=== PATIENT | female | born 1980 | race Caucasian/White ===

== ENCOUNTER → 2018-06-05 12:16 | Outpatient (CLI) | payer OTHER, SELFPAY ==
[2018-06-05 12:02] VITALS: BMI 39.2
[2018-06-05 13:15] LABS: Absolute Lymphocyte Count 1.36 X10^3/ul (0.83-4.51); Absolute Neutrophil Count 4.6 X10^3/uL (2.0-7.7); Basophil# 0.01 X10^3/uL; Basophil% 0.2 % (0-1); Eosinophil# 0.18 X10^3/uL; Eosinophils% 2.8 % (0-5); Hematocrit 34.2 % (37-47); Hemoglobin 10.9 g/dl (12.0-15.0); Lymphocyte # 1.36 X10^3/ul (4.0); Lymphocyte % 21.1 % (19-41); Mean Corp Hgb Conc 31.9 g/gl (32-36); Mean Corpuscular Hgb 29.2 pg (27.0-32.0); Mean Corpuscular Volume 91.7 fL (81-99); Mean Platelet Vol. 9.8 fl (6.2-12.0); Monocyte# 0.27 X10^3/uL; Monocyte% 4.2 % (0-10); Neutrophil # 4.62 X10^3/uL (2.7-7.7); Neutrophil % 71.4 % (47-70); Platelet Count 253 K/mm3 (150-450); RBC Distribution Width CV 14.7 % (11.6-14.6); RBC Distribution Width SD 47.5 fl (35.1-43.9); Red Blood Count 3.73 M/mm3 (4.2-5.4); White Blood Count 6.5 K/mm3 (4.4-11.0)
[2018-06-05 13:17] LABS: POSITIVE COUNT NO; POSITIVE DIFFERENTIAL NO; POSITIVE MORPHOLOGY NO
[2018-06-05 13:45] LABS: Glucose Challenge Gest 1H 50g 157 mg/dL (70-140)
[2018-06-05 14:11] LABS: Rubella IgG > 500.0 IU/mL
== END ==
PROVIDERS: Family Provider Family Medicine; PCP Family Medicine; Referring Provider Obstetrics & Gynecology; Visit Provider Obstetrics & Gynecology
DX: O09.90 Supervision of high risk pregnancy, unspecified, unspecified trimester (principal); Z3A.00 Weeks of gestation of pregnancy not specified
CPT/HCPCS: 36415; 82950; 85025; 86762

== ENCOUNTER → 2018-06-19 07:02 | Outpatient (CLI) | payer OTHER, SELFPAY ==
[2018-06-05 12:02] VITALS: BMI 39.2
[2018-06-19 08:50] LABS: Glucose GTT-Gestation. Fasting 89 mg/dL (<105)
[2018-06-19 08:58] LABS: Glucose GTT-Gestational 1 Hr 216 mg/dL (<190)
[2018-06-19 11:13] LABS: Glucose GTT-Gestational 2 Hr 147 mg/dL (<165)
[2018-06-19 11:19] LABS: Glucose GTT-Gestational 3 Hr 91 L (<145)
== END ==
PROVIDERS: Family Provider Family Medicine; PCP Family Medicine; Referring Provider Nurse Practitioner Women's Health; Visit Provider Nurse Practitioner Women's Health
DX: O99.815 Abnormal glucose complicating the puerperium (principal)
CPT/HCPCS: 36415; 82951; 82952

== ENCOUNTER 2018-07-12 13:00 | Outpatient (CLI) | payer OTHER, SELFPAY ==
[2018-07-03 11:18] VITALS: BMI 39.2
[2018-07-12 13:14] VITALS: BMI 39.4
--- NOTE | 2018-07-13 19:39 | OB.TRI.PN_ITS ---
Progress Notes Date of Service: 07/12/18 Progress Note: NST secondary to gestational diabetes heart tones 140smoderate variability reactive no decelerations category I tracing [place]: no regular Assessment and plan gestational diabetes controlled with insulin recommend weekly testing and delivery at 39 weeks
== END 2018-07-12 14:30 | disposition home or self-care (01) ==
LOC: WPOUT 13:01 → WP 13:02
PROVIDERS: Family Provider Family Medicine; PCP Family Medicine; Referring Provider Obstetrics & Gynecology; Visit Provider Obstetrics & Gynecology
DX: O24.414 Gestational diabetes mellitus in pregnancy, insulin controlled (principal); Z3A.39 39 weeks gestation of pregnancy
CPT/HCPCS: 59025

== ENCOUNTER 2018-07-20 10:40 | Outpatient (CLI) | payer OTHER, SELFPAY ==
[2018-07-20 09:54] VITALS: BMI 39.4
[2018-07-20 11:35] VITALS: BMI 39.1
--- NOTE | 2018-07-21 08:17 | OB.TRI.NOTE ---
History of Present Illness Date of Service: 07/20/18 Was patient seen by the physician?: Yes Reason For Visit: NST Date of Service: 07/20/18 Final MAKENNA: 08/26/18 Final MAKENNA Source: US <20 weeks Gestational age: 34 Weeks and 6 Days History of Present Illness: Gestational diabetes for scheduled NST Allergies No Known Allergies Allergy (Verified 07/20/18 11:19) - Pertinent Past Medical History Surgical History: Past Surgical History (Last Reviewed 07/20/18 @ 09:53 by Radha Rahman) H/O dilation and curettage Hx laparoscopic cholecystectomy Physical Exam General: Alert, Oriented x3, Cooperative, No apparent distress Cardiovascular: Regular rate, Regular Rhythm Lungs: Clear to auscultation, Normal air movement Abdomen: Soft, Non Tender, Non-Distended, Gravid, Appropriate for Gestational Age Extremities:: No edema Neurological: Neuro grossly intact NST - FHR Rate Baby A Baseline: 140s Variability:: Moderate Accelerations:: 15 x 15 Decelerations:: None NST Reactive:: Yes, Appropriate for gestational age FHR Category:: Category I Uterine Activity:: none Impression/Plan Gestational diabetes at 34w6d ega for scheduled NST. NST reassuring. Good movement here and at home. F/U as scheduled.
== END 2018-07-20 12:08 | disposition home or self-care (01) ==
LOC: WPOUT 10:49 → OBT 10:50
PROVIDERS: Family Provider Family Medicine; PCP Family Medicine; Referring Provider Obstetrics & Gynecology; Visit Provider Obstetrics & Gynecology
DX: O24.419 Gestational diabetes mellitus in pregnancy, unspecified control (principal); Z3A.34 34 weeks gestation of pregnancy
CPT/HCPCS: 59025; 99218; G0378

== ENCOUNTER → 2018-08-03 17:53 | Outpatient (CLI) | payer OTHER, SELFPAY ==
[2018-08-03 10:29] VITALS: BMI 39.1
== END ==
PROVIDERS: Family Provider Family Medicine; PCP Family Medicine; Referring Provider Obstetrics & Gynecology; Visit Provider Obstetrics & Gynecology
DX: O09.90 Supervision of high risk pregnancy, unspecified, unspecified trimester (principal); Z3A.00 Weeks of gestation of pregnancy not specified
CPT/HCPCS: 87081

== ENCOUNTER 2018-08-13 05:30 | Inpatient (IN) | payer SELFPAY ==
[2018-06-19 10:29] VITALS: BMI 39.2
--- NOTE | 2018-08-10 07:58 | FALS_PTH ---
PATIENT: BERNARDA MCCOY LOC: [facility] U#:[id number] AGE/SX: 37/F ROOM: WP019 RE08/13/[address]: Dr. Sarai Jackson MD : 1980 BED: 1 DIS: 08/14/2018 SPEC #: [id number] RECD: 08/13/18 10:43 STATUS: TERESA REShirley #: [id number] KASHMIR: 08/10/18 07:[address]: Sarai Jackson DEPT: SURGICAL PATHOLOGY RECD BY: Nehemiah Mayo ENTERED: 08/14/18 08:28 SP TYPE: FALL TUBES OTHR DR: Hiral Menon PA-C Tissues: Fallopian tube Procedures: Surgery Specimen Level II HEADER OPERATION: Tubal ligation PRE-OP DIAGNOSIS: DVT, high risk TISSUE SUBMITTED: Fallopian tubes, suture in right MICROSCOPIC DIAGNOSIS Bilateral fallopian tubes: Right fallopian tube - segment of fallopian tube with complete lumen. Left fallopian tube - segment of fallopian tube with complete lumen and stromal decidual change. CE:nirav 08/15/18 MICROSCOPIC DESCRIPTION Slides are reviewed. GROSS DESCRIPTION Received is one container labeled with the patient's name and designated bilateral fallopian tubes. The specimen consists of two fallopian tubes with an average length of 4.5 cm and has an average diameter of 0.5 cm. Both fallopian tubes have normal fimbriated ends. No mass lesions are identified. [employer] sections are submitted in two cassettes as follows: 1 - right fallopian tube, 2 - left fallopian tube. / AM:nirav 08/14/18 TC:5 CPT: 33304 x2
[2018-08-13] VITALS (21 sets, daily range): BP systolic 114–139; BP diastolic 62–86; PULSE 66–85; RESP 15–18; TEMP 35.7–37; O2SAT 94–100; BMI 38.8
[2018-08-13] MEDS: Lactated Ringers 1,000 ML 999 ML IV (06:20)
[2018-08-13 06:51] LABS: Absolute Lymphocyte Count 1.55 X10^3/ul (0.83-4.51); Absolute Neutrophil Count 5.6 X10^3/uL (2.0-7.7); Basophil# 0.01 X10^3/uL; Basophil% 0.1 % (0-1); Eosinophil# 0.12 X10^3/uL; Eosinophils% 1.5 % (0-5); Hematocrit 34.7 % (37-47); Lymphocyte # 1.55 X10^3/ul (4.0); Lymphocyte % 19.9 % (19-41); Mean Corp Hgb Conc 34.6 g/gl (32-36); Mean Corpuscular Hgb 30.5 pg (27.0-32.0); Mean Corpuscular Volume 88.1 fL (81-99); Mean Platelet Vol. 10.1 fl (6.2-12.0); Monocyte# 0.51 X10^3/uL; Monocyte% 6.6 % (0-10); Neutrophil # 5.58 X10^3/uL (2.7-7.7); Neutrophil % 71.9 % (47-70); Platelet Count 230 K/mm3 (150-450); RBC Distribution Width CV 15.1 % (11.6-14.6); RBC Distribution Width SD 48.5 fl (35.1-43.9); Red Blood Count 3.94 M/mm3 (4.2-5.4); White Blood Count 7.8 K/mm3 (4.4-11.0)
[2018-08-13 07:01] LABS: POSITIVE COUNT NO; POSITIVE DIFFERENTIAL NO; POSITIVE MORPHOLOGY NO
[2018-08-13 07:05] LABS: Bedside Glucose 80 mg/dL (70-110)
[2018-08-13 07:08] LABS: Prothrombin Time (Protime)PT. 12.8 SECONDS (11.7-14.9)
[2018-08-13 07:09] LABS: Partial Thromboplast Time 30.9 Seconds (24.1-36.2)
[2018-08-13 07:11] LABS: ROM Internal Control Test YES-OK TO RESULT pt. (Internal QC); ROM Patient Test Negative (Negative)
[2018-08-13] MEDS: Sodium Citrate/Citric Acid 30 ML UDC PO (07:28)
[2018-08-13] MEDS: Lactated Ringers 1,000 ML 150 ML IV (07:28)
[2018-08-13] MEDS: Oxytocin 30 units/NS 500 ml 30 UNITS/500 ML IV.SOLN 167 UNITS IV (08:00)
[2018-08-13] MEDS: Ketorolac 30 MG/ML Syringe IV ×3 (08:30→20:09)
--- NOTE | 2018-08-13 08:33 | HP.PCM_ITS ---
- Problem List (1) Active labor at term Status: Acute (2) Polyhydramnios Status: Acute Qualifiers: Comment: GVP of 9cm (3) Insulin controlled gestational diabetes mellitus (GDM) in third trimester Status: Acute Comment: start 36 U NPH at night, plan growth us q4 weeks, twice weekly testing, deliver at 39 weeks (4) Anemia affecting , antepartum Status: Acute Comment: Fe daily (5) Abnormal glucose complicating puerperium Status: Acute Comment: 3 hr GTT ordered (6) History of Status: Acute Comment: plan RLTCS (7) with history of infertility Status: Acute Qualifiers: Comment: IUI Dr Cosby Gonadotropins- Triples with 2 demises. (8) Status: Acute Qualifiers: Comment: normal anatomy scan (9) Advanced maternal age (AMA) in Status: Acute (10) History of DVT (deep vein thrombosis) Status: Acute Comment: On lovenox; DVT during last , will discuss with MFM about recommended heprin dosing (11) Supervision of high risk , antepartum Status: Acute Comment: PRR MAKENNA 08/25/18 girl [facility] PC:Ashish, Valentín, Wayne(twins), Tiesha. Spouse Greg History Date of Admission: 08/13/18 Final MAKENNA: 08/25/18 Gestational age: 38 Weeks and 2 Days History of this : This is a 37 year-old, , at 38 weeks gestational age presents IAL thai regularly despite IVFs 1-2 cm dilated and increased discharge. contractions have been increasing all weekend. she denies any vb admits good fm. last lovenox shot was 24 hours ago. Surgical History: Surgical History (Last Reviewed 08/09/18 @ 14:20 by Babs Cabrera) H/O dilation and curettage Z98.890 Hx laparoscopic cholecystectomy Z90.49 Allergies No Known Allergies Allergy (Verified 08/09/18 14:20) Home Medications: Home Medications Vits [Prenatabs FA] 1 tab PO DAILY 07/07/15 Ferrous Sulfate 325 mg PO BIDCM 07/19/15 insulin NPH isophane U- 100 human 100 unit/mL subcutaneous suspension 30 unit SUBCUT QPM #10 ml 07/27/18 enoxaparin 40 mg/0.4 mL subcutaneous syringe 40 mg SUBCUT Q12H #4 ml 08/07/18 Smoking Status: Former smoker Alcohol: None Number of Fetus(es): 1 Heart Tracin moderate variability reactive no decelerations category I tracing [place]: regular History Past Pregnancies: Past Pregnancies Pregancy History 4 Elective abortions Hx Para 3 Spontaneous abortions 1 Hx # Term Pregnancies Ectopic pregnancies Hx # Pregnancies Multiple births # of living children Past Pregnancies Del. Date Name GA/Weeks Outcome Route Bth Weight Infant Gen Labor Lgth Anesthesia Del Locatn Provider FOB Unknown 2001 Ashish live - full term Unknown 2004 Malcolm and Hal live - full term twins Unknown 2015 Tiesha live - full term Labs: Mom's Labs & Results 08/13/18 08/13/18 08/13/18 06:08 06:15 06:20 WBC 7.8 RBC 3.94 L Hgb 12.0 Hct 34.7 L MCV 88.1 MCH 30.5 MCHC 34.6 RDW 15.1 H RDW Differential 48.5 H Plt Count 230 MPV 10.1 Immature Gran % (Auto) 0.000 Neut % (Auto) 71.9 H Lymph % (Auto) 19.9 [place] % (Auto) 6.6 Eos % (Auto) 1.5 Baso % (Auto) 0.1 Absolute Neuts (auto) 5.6 Absolute Lymphs (auto) 1.55 Total Counted Not Reportable PT INR APTT Vag Amniotic Fld Detect Negative POC Glucose 80 Blood Type Antibody Screen 08/13/18 08/13/18 06:20 06:20 WBC RBC Hgb Hct MCV MCH MCHC RDW RDW Differential Plt Count MPV Immature Gran % (Auto) Neut % (Auto) Lymph % (Auto) [place] % (Auto) Eos % (Auto) Baso % (Auto) Absolute Neuts (auto) Absolute Lymphs (auto) Total Counted PT 12.8 INR 1.0 APTT 30.9 Vag Amniotic Fld Detect POC Glucose Blood Type A POSITIVE Antibody Screen NEGATIVE Course Did the patient receive Yes care? Labs Blood Type: A RH: POSITIVE RPR/VDRL/Syphilis Nonreactive Rubella status Immune HbSAg Negative Date Done: 02/04/18 Chlamydia Not Done Gonorrhea Not Done HIV/AIDS Non-Reactive Group B Strep: Negative Current Obstetrical History Gestational Diabetes Yes: on insulin Incompetent Cervix No Infertility Yes: iui IUGR No Macrosomia No Hypertension/Pre-eclampsia No Placenta Previa/Abruption No PTL/PROM No Uterine anomaly No Oligohydramnios No Polyhydramnios No Multiple gestation Yes: originally triplets Past Medical History Asthma No Diabetes No Hypertension No Heart disease No Mitral valve prolapse No Neurologic/Seizure disorder/ No Migraines Kidney disease No Liver disease No Varicosities Yes Clotting disorders/Hx of DVT Yes: with previous Thyroid Dysfunction No Other medical diseases No Psychiatric disorders No Major trauma No Abnormal PAP smear No Sleep apnea No Mammogram in the last 2 years No Social History Marital Status: Alleged father Greg Hx Smoking No Smoking Status Former smoker Expected Infant Delivery Method: Repeat Section Review of Systems Constitutional: Denies: Fever, Malaise Eyes: Denies: Blurred vision, Vision Change HEENT: Denies: Head Aches, Visual Changes Cardiovascular: Denies: Chest Pain, Palpitations Respiratory: Denies: Cough, Shortness of Breath, Wheezing Gastrointestinal: Reports: Abdominal Pain, Nausea. Denies: Diarrhea, Vomiting Genitourinary: Denies: Dysuria, Hematuria Musculoskeletal: Denies: Joint Pain, Muscle pain Skin: Denies: Lesions, Rash Neurological: Denies: Blurred vision, Focal weakness, Headaches Psychiatric: Denies: Anxiety, Depression Endocrine: Denies: Heat/ Cold Intolerance Hematologic/ Lymphatic: Denies: Easy Bruising, Easy Bleeding Physical Exam General: Alert, Cooperative, No apparent distress HEENT: Atraumatic, Normocephalic. Negative for: Thyromegaly, Lymphadenopathy Cardiovascular: Regular rate Lungs: Normal air movement Abdomen: Soft, Non Tender, Gravid Neurological: Deep Tendon Reflexes 2+/4 and Symmetrical, Neuro grossly intact. Negative for: Clonus [employer] SPR[employer]ER: Normal external genitalia. Negative for: Vulvar lesions Estimated gestational size: Appropriate for gestational size Presentation: Cephalic Cervix Dilation (cm): 1.5 Assessment/Plan All Active Problems (Last Reviewed 08/09/18 @ 14:20 by Babs Cabrera) Active labor at term (Acute) Polyhydramnios (Acute) Insulin controlled gestational diabetes mellitus (GDM) in third trimester (Acute) Anemia affecting , antepartum (Acute) Abnormal glucose complicating puerperium (Acute) History of (Acute) with history of infertility (Acute) (Acute) Advanced maternal age (AMA) in (Acute) History of DVT (deep vein thrombosis) (Acute) Supervision of high risk , antepartum (Acute) This is a 37 year-old, at 38 weeks 2 days gestational age presents IAL previous csection declines TOLAC plan RLTCS BTL. GDMA2- fbs 80 today, h/o dvt, last lovenox was 24 hours ago
--- NOTE | 2018-08-13 08:36 | OP.PCM_ITS ---
Problem List (1) Active labor at term Status: Acute (2) Polyhydramnios Status: Acute Qualifiers: Comment: GVP of 9cm (3) Insulin controlled gestational diabetes mellitus (GDM) in third trimester Status: Acute Comment: start 36 U NPH at night, plan growth us q4 weeks, twice weekly testing, deliver at 39 weeks (4) Anemia affecting , antepartum Status: Acute Comment: Fe daily (5) Abnormal glucose complicating puerperium Status: Acute Comment: 3 hr GTT ordered (6) History of Status: Acute Comment: plan RLTCS (7) with history of infertility Status: Acute Qualifiers: Comment: IUI Dr Cosby Gonadotropins- Triples with 2 demises. (8) Status: Acute Qualifiers: Comment: normal anatomy scan (9) Advanced maternal age (AMA) in Status: Acute (10) History of DVT (deep vein thrombosis) Status: Acute Comment: On lovenox; DVT during last , will discuss with MFM about recommended heprin dosing (11) Supervision of high risk , antepartum Status: Acute Comment: PRR MAKENNA 08/25/18 girl [facility] PC:Ashish, Valentín, Wayne(twins), Tiesha. Spouse Greg Delivery Classification: KAREEM Final MAKENNA: 07/25/18 Gestational age: 42 Weeks and 5 Days Indications: ial declines tolac Indications for : Repeat Elective Description of Procedure: The patient is a 37-year-old G4, P3 at 38 weeks 2 days presented in active labor with regular contractions over the weekend increasing, she declined trial of labor and therefore requested repeat heat . Spinal anesthesia was placed without difficulty. Rodriguez catheter was placed. The patient was placed in the dorsal supine position with leftward tilt. Patient was prepped and draped in the normal sterile fashion. Pfannenstiel skin incision was made with the scalpel and carried through to the underlying layer of fascia with the sca lpel. Fascia was nicked in the midline and the incision extended laterally. The rectus bellies were dissected off superiorly and inferiorly with out complication both sharply and bluntly. The peritoneum was entered digitally. The incision was stretched and a low transverse uterine incision was made with the scalpel. The 's head was delivered atraumatically followed by the anterior and posterior shoulders without complication the rest of the infant delivered. The cord was clamped and cut and the infant was handed off to awaiting nurse. The placenta was delivered spontaneously immediately following and was noted to be intact and have a three-vessel cord. The uterus was exteriorized cleared of all clots and debris, and the incision was closed in a single layer closure using #1 Monocryl. The uterus was returned to the maternal abdomen and gutters were cleared of all clots and debris. The ovaries and fallopian tubes were noted to be within normal limits. Bilateral tubal ligation was performed via the [place] method the peritoneum was closed with 3-0 Monocryl in a running fashion. Fascia was closed with 0 PDS in a running fashion. Subcutaneous tissue was copiously irrigated and the skin was closed with 3-0 Monocryl in a subcuticular fashion. Steri-Strips and Mepilex dressing were applied without complication. Patient was taken to recovery in stable condition. Amniotic Membrane Rupture Type: Spontaneous Amniotic Fluid Description: Clear Placenta Disposition: [facility] Cord Entanglement: None Esitmated Blood Loss (ml): 700 Gender: Female Delayed cord clamping: Yes Pre-op Antibiotic Given: - - ancef 3g Complications: None - Admit VTE Documentation VTE Present on Admission: No VTE Mechan Device Prophylaxis: SCD's
[2018-08-13 09:36] LABS: Bedside Glucose 75 mg/dL (70-110)
[2018-08-13 10:36] LABS: Chlamydia Trachomatis by PCR Negative (Negative); Neisserai gonorrhoeae by PCR Negative (Negative); Probe Check PASS; Sample Adequacy Control PASS; Specimen Processing Control PASS
[2018-08-13] MEDS: Nystatin Powder 15gm Bottle 1 APPLIC TOPICAL ×2 (10:47→20:08)
--- NOTE | 2018-08-13 11:57 | NURSING ---
pt pumping- given instruction pt verbalizes understanding
[2018-08-13] MEDS: Nalbuphine 10 MG/ML Ampul 5 MG IV ×2 (12:16→15:05)
[2018-08-13] MEDS: Lactated Ringers 1,000 ML 100 ML IV ×2 (13:58→23:47)
[2018-08-13] MEDS: Enoxaparin 40 MG/0.4 ML Syringe SC (20:08)
[2018-08-14 02:15] VITALS: PULSE 75; RESP 16; O2SAT 96
[2018-08-14] MEDS: Ketorolac 30 MG/ML Syringe IV ×2 (02:26→08:15)
[2018-08-14 03:42] VITALS: BP 120/72; PULSE 80; RESP 18; TEMP 36.1; O2SAT 95
[2018-08-14 05:55] VITALS: PULSE 80; RESP 18; O2SAT 97
[2018-08-14] MEDS: Acetaminophen 500 MG Tablet 1000 MG PO (06:10)
[2018-08-14 06:11] LABS: Bedside Glucose 94 mg/dL (70-110)
[2018-08-14 06:23] LABS: Hematocrit 30.1 % (37-47); Hemoglobin 10.3 g/dl (12.0-15.0); Mean Corp Hgb Conc 34.2 g/gl (32-36); Mean Corpuscular Hgb 30.2 pg (27.0-32.0); Mean Corpuscular Volume 88.3 fL (81-99); Mean Platelet Vol. 9.7 fl (6.2-12.0); Platelet Count 197 K/mm3 (150-450); RBC Distribution Width CV 15.1 % (11.6-14.6); Red Blood Count 3.41 M/mm3 (4.2-5.4)
[2018-08-14 06:26] LABS: Scan Indicated on CBC? Y/N NO
--- NOTE | 2018-08-14 08:02 | PCM.PN.OB ---
Patient Problems: Active and Suspected Problems (Last Reviewed 08/09/18 @ 14:20 by Babs Cabrera) Active labor at term (Acute) Subjective: doing well no complaints pain controlled no CP SOB N V ambulating well tolerating po lochia moderate, pumping currently as baby in [place]. Wishes discharge this am. Glucose WNL - Physical Exam General: Alert, Oriented x3 Abdomen: Soft, Non-Distended, - - FF below U. Dressing dry and intact Vital Signs Temp Pulse Resp BP Pulse Ox 96.9 F L 80 18 120/72 97 08/14/18 03:42 08/14/18 05:55 08/14/18 05:55 08/14/18 03:42 08/14/18 05:55 Oxygen Delivery Method Room Air Weight: 233 lb 6.4 oz Body Mass Index (BMI) 38.8 Intake and Output for Last 24 Hours 08/12/18 08/13/18 08/14/18 23:59 23:59 23:59 Intake Total 2475 / 2475 951 / 951 Output Total 2850 / 2850 2200 / 2200 Balance -375 / -375 -1249 / -1249 Laboratory Tests Past 24 Hrs 08/13/18 08/14/18 07:25 06:15 WBC 8.0 RBC 3.41 L Hgb 10.3 L Hct 30.1 L MCV 88.3 MCH 30.2 MCHC 34.2 RDW 15.1 H RDW Differential 47.0 H Plt Count 197 MPV 9.7 Chlam trachomat DNA PCR Negative N.gonorrhoeae DNA (PCR) Negative POC Glucose 08/14/18 08/13/18 05:59 09:31 POC Glucose 94 75 Medical Necessity - Tobacco Use Smoking Status: Former smoker Assessment/Plan All Active Problems (Last Reviewed 08/09/18 @ 14:20 by Babs Cabrera) Active labor at term (Acute) Polyhydramnios (Acute) Insulin controlled gestational diabetes mellitus (GDM) in third trimester (Acute) Anemia affecting , antepartum (Acute) Abnormal glucose complicating puerperium (Acute) History of (Acute) with history of infertility (Acute) (Acute) Advanced maternal age (AMA) in (Acute) History of DVT (deep vein thrombosis) (Acute) Supervision of high risk , antepartum (Acute) s/p LTCS PPD # 1 1. routine post care 2. breast feeding planned, currently pumping- support given 3. rh positive 4. rubella immune 5. up to shower and if well tolerated may discharge. 6. continue lovenox
--- NOTE | 2018-08-14 08:05 | DCINST_ITS ---
Additional Instructions: If you experience any of the following, contact your healthcare provider. * Bleeding that soaks a pad every hour for 2 hours * Fever 100.4 or higher * Unrelieved incision or abdominal pain * Swelling, redness, discharge or bleeding from your incision or episiotomy site * Your incision begins to separate * Problems urinating (including inability to urinate or burning while urinating). * Visual changes * Severe headache * Flu-like symptoms * Pain or redness in one of both of your breasts * Pain, warmth, tenderness or swelling in your legs, especially the calf area * Frequent nausea and vomiting * Symptoms of depression or anxiety If you experience any of the following, call 911 or go to the nearest Emergency Room. * Chest pain * Problems breathing * Seizure activity * Partial or complete paralysis of a body part, slurred speech, weakness or drooping of the face, or a sudden inability to walk or hold your balance Allergies/Adverse Reactions: Allergies No Known Allergies Allergy (Verified 08/09/18 14:20) Medications to take at Discharge Vits [Prenatabs FA] 1 tab PO DAILY 07/07/15 Ferrous Sulfate 325 mg PO BIDCM 07/19/15 insulin NPH isophane U- 100 human 100 unit/mL subcutaneous suspension 30 unit SUBCUT QPM #10 ml 07/27/18 enoxaparin 40 mg/0.4 mL subcutaneous syringe 40 mg SUBCUT Q12H #4 ml 08/07/18 Enoxaparin [Lovenox] 40 mg SUBCUT Q12H #4 ml 08/14/18 Naproxen [Naprosyn] 500 mg PO BID PRN PRN #60 tablet 08/14/18 Oxycodone HCl/Acetaminophen [Percocet 5/325] 1 - 2 tablet PO Q4H PRN PRN 7 Days #28 tablet 08/14/18 The following prescriptions were given: Oxycodone HCl/Acetaminophen [Percocet 5/325] 1 - 2 tablet PO Q4H PRN PRN 7 Days #28 tablet PRN Reason: Pain Enoxaparin [Lovenox] 40 mg SUBCUT Q12H #4 ml Naproxen [Naprosyn] 500 mg PO BID PRN PRN #60 tablet PRN Reason: Pain Follow-Up: Call to make an appointment with your doctor for an incision check in 1-2 weeks. You will also need a 6 week post- follow up appointment. Test results from this visit will be discussed in further detail at your follow- up appointment, if applicable. Primary Care Physician: Hiral Menon PA-C [Primary Care Provider] -
[2018-08-14] MEDS: 0.9% Saline Lock 10 ML Syringe IV (08:14)
[2018-08-14] MEDS: Enoxaparin 40 MG/0.4 ML Syringe SC (08:15)
[2018-08-14 08:30] VITALS: BP 131/70; PULSE 80; RESP 20; TEMP 36.4
[2018-08-15 15:22] LABS: Pathology Specimen OB SEE PATHOLOGY REPORT
--- NOTE | 2018-08-19 13:26 | NURSING ---
Follow up phone no answer, left voicemail.
== END 2018-08-14 10:15 | disposition home or self-care (01) | DRG 785 ==
PROVIDERS: Admitting Provider Obstetrics & Gynecology; Family Provider Family Medicine; PCP Family Medicine; Referring Provider Obstetrics & Gynecology; Visit Provider Obstetrics & Gynecology
DX: O34.211 Maternal care for low transverse scar from previous cesarean delivery (principal); O42.02 Full-term premature rupture of membranes, onset of labor within 24 hours of rupture; O40.3XX0 Polyhydramnios, third trimester, not applicable or unspecified; O99.213 Obesity complicating pregnancy, third trimester; E66.01 Morbid (severe) obesity due to excess calories; O24.424 Gestational diabetes mellitus in childbirth, insulin controlled; O99.02 Anemia complicating childbirth; O09.523 Supervision of elderly multigravida, third trimester; O09.03 Supervision of pregnancy with history of infertility, third trimester; O09.293 Supervision of pregnancy with other poor reproductive or obstetric history, third trimester; Z30.2 Encounter for sterilization; Z87.891 Personal history of nicotine dependence; Z86.718 Personal history of other venous thrombosis and embolism; Z79.01 Long term (current) use of anticoagulants; Z3A.38 38 weeks gestation of pregnancy; Z37.0 Single live birth; Z87.59 Personal history of other complications of pregnancy, childbirth and the puerperium
CPT/HCPCS: 59025; 82962; 84112; 85025; 85027; 85610; 85730; 86850; 86900; 87491; 87591; 88302; 94762; 99218; J7120; A4216; G0378; J2405

== ENCOUNTER → 2018-10-02 17:21 | Outpatient (CLI) | payer OTHER, SELFPAY ==
[2018-10-02 13:41] VITALS: BMI 39.1
[2018-10-08 12:12] LABS: HPV APTIMA, High Risk Negative (Negative)
== END ==
PROVIDERS: Family Provider Family Medicine; PCP Family Medicine; Referring Provider Obstetrics & Gynecology; Visit Provider Obstetrics & Gynecology
DX: Z12.4 Encounter for screening for malignant neoplasm of cervix (principal)
CPT/HCPCS: 87624; 88175; G0145

== ENCOUNTER → 2021-12-20 | Outpatient (CLI) | payer SELFPAY, OTHER ==
--- NOTE | 2021-12-20 12:26 | US_ITS ---
STUDY: ULTRASOUND TRANSVAGINAL CLINICAL: Female, 41 years old. HEAVY MENSTRUAL PERIODS TECHNIQUE: Transvaginal COMPARISON: None. FINDINGS: Normal uterine size measuring 12.2 cm in maximal craniocaudal dimension. There is a 1.7 cm fibroid. Normal endometrial thickness measuring 8 mm. There are no endometrial masses, and there is no fluid in the endometrial cavity. Normal uterine cervix. Normal right ovary, measuring 2.0 x 1.9 x 1.6 cm. There are multiple follicles without a dominant cyst. Normal left ovary, measuring 5.5 x 6.8 x 6.5 cm. There are multiple follicles with a simple 5.6 x 6.3 x 5.8 cm cyst. There is no free fluid in the pelvis. Polycystic ovary disease: No. US/Transvaginal Non- IMPRESSION: Large simple left ovarian cyst, no specific follow-up needed. Small uterine fibroid Electronically Signed: Alvaro Dooley MD at 13:32 EDT ,
[2021-12-20 13:36] LABS: Absolute Lymphocyte Count 2.92 X10^3/uL (0.83-4.51); Absolute Neutrophil Count 3.8 X10^3/uL (2.0-7.7); Basophil# 0.05 X10^3/uL; Basophil% 0.7 % (0-1); Eosinophil# 0.28 X10^3/uL; Eosinophils% 3.7 % (0-5); Hematocrit 38.5 % (37-47); Hemoglobin 12.9 g/dL (12.0-15.0); Lymphocyte # 2.92 X10^3/ul (0.83-4.51); Lymphocyte % 38.8 % (19-41); Mean Corp Hgb Conc 33.5 g/dL (32-36); Mean Corpuscular Hgb 28.8 pg (27.0-32.0); Mean Corpuscular Volume 85.9 fL (81-99); Mean Platelet Vol. 9.5 fl (6.2-12.0); Monocyte# 0.48 X10^3/uL; Monocyte% 6.4 % (0-10); NRBC Flagged by Analyzer 0 % (0-5); Neutrophil # 3.78 X10^3/uL (2.7-7.7); Neutrophil % 50.1 % (47-70); Platelet Count 324 K/mm3 (150-450); RBC Distribution Width CV 13.4 % (11.6-14.6); Red Blood Count 4.48 M/mm3 (4.2-5.4); White Blood Count 7.5 K/mm3 (4.4-11.0)
[2021-12-20 14:14] LABS: Free T3 2.6 pg/mL (2.18-3.98); T4 Free Direct 0.65 ng/dL (0.76-1.46)
== END | disposition home or self-care (01) ==
LOC: US 12:22
PROVIDERS: PCP Registered Nurse; Referring Provider Registered Nurse; Visit Provider Registered Nurse
DX: N92.0 Excessive and frequent menstruation with regular cycle (principal); D25.9 Leiomyoma of uterus, unspecified; N83.202 Unspecified ovarian cyst, left side; R53.83 Other fatigue; Z13.29 Encounter for screening for other suspected endocrine disorder
CPT/HCPCS: 36415; 76830; 84439; 84443; 84481; 85025

== ENCOUNTER → 2022-02-04 | Outpatient (CLI) | payer OTHER, SELFPAY ==
[2022-02-04 15:24] LABS: Free T3 2.3 pg/mL (2.18-3.98); T4 Free Direct 0.73 ng/dL (0.76-1.46); Thyroid Stim Hormone (TSH) 2.91 uIU/mL (0.358-3.74)
== END | disposition home or self-care (01) ==
LOC: LAB 13:42
PROVIDERS: PCP Registered Nurse; Visit Provider Registered Nurse
DX: E03.9 Hypothyroidism, unspecified (principal)
CPT/HCPCS: 36415; 84439; 84443; 84481

== ENCOUNTER → 2022-04-05 | Outpatient (CLI) | payer OTHER, SELFPAY ==
--- NOTE | 2022-04-05 | EMB_PTH ---
PATIENT: BERNARDA MCCOY LOC: [facility] U#:[id number] AGE/SX: 41/F ROOM: RE04/05/[address]: Dr. Sarai Jackson MD : 1980 BED: DIS: 04/05/2022 SPEC #: [id number] RECD: 04/05/22 16:12 STATUS: TERESA GLEASON #: [id number] KASHMIR: 04/05/22 00:[address]: Sarai Jackson DEPT: SURGICAL PATHOLOGY RECD BY: Grisel Freire ENTERED: 04/06/22 10:05 SP TYPE: ENDOM BX/C PALOMO DR: Shannan Schulte CNM Tissues: Endometrium, NOS Procedures: Surgery Specimen Level IV Comments: @ Originally on account #[id number] Req #[id number] HEADER OPERATION: Endometrial biopsy PRE-OP DIAGNOSIS: Abnormal uterine bleeding TISSUE SUBMITTED: Endometrial biopsy MICROSCOPIC DIAGNOSIS Endometrium, biopsy: Secretory endometrium. AM:nirav 04/07/2022 MICROSCOPIC DESCRIPTION Slides are reviewed. GROSS DESCRIPTION Received is one container labeled with the patient's name and not further designated. The specimen consists of multiple irregular fragments of rose soft tissue that in aggregate measure 2.5 x 2.5 x 0.2 cm. The specimen is totally submitted in one cassette. / SJ:nirav 04/06/2022 TC:5 CPT: 84844
== END | disposition home or self-care (01) ==
LOC: LABSPEC 17:01
PROVIDERS: PCP Registered Nurse; Visit Provider Obstetrics & Gynecology
DX: N93.9 Abnormal uterine and vaginal bleeding, unspecified (principal)
CPT/HCPCS: 88305

== ENCOUNTER → 2022-04-07 | Outpatient (CLI) | payer SELFPAY, OTHER ==
--- NOTE | 2022-04-07 15:54 | US_ITS ---
INDICATION: DYSMENORRHEA EXAMINATION: US Pelvis Non OB Complete With Transvaginal Imaging TECHNIQUE: Transabdominal and transvaginal pelvic ultrasound was performed. Grayscale, spectral waveform, and color flow Doppler evaluation of the adnexa. COMPARISON: None. FINDINGS: UTERUS: Anteverted. The uterus measures 11 x 6.8 x 6.1 cm. There is a 2.5 cm intramural fibroid in the posterior body. The endometrial stripe measures 8 mm in AP diameter which is within normal limits. Multiple nabothian cysts, including a debris filled cyst. RIGHT OVARY: Measures 2.2 x 2.1 x 1.4 cm. Non-enlarged, normal echogenicity. There is normal arterial inflow and venous outflow present in the right ovary. LEFT OVARY: Measures 2.9 x 2.8 x 3.7 cm. Non-enlarged, normal echogenicity. There is normal arterial inflow and venous outflow present in the left ovary. FREE FLUID: None. US/Pelvic (Non ) IMPRESSION: Fibroid uterus. Electronically Signed: Ricardo Coles MD at 21:59 EST ,
== END | disposition home or self-care (01) ==
PROVIDERS: PCP Registered Nurse; Referring Provider Obstetrics & Gynecology; Visit Provider Obstetrics & Gynecology
DX: N83.209 Unspecified ovarian cyst, unspecified side (principal); N92.0 Excessive and frequent menstruation with regular cycle; D25.9 Leiomyoma of uterus, unspecified
CPT/HCPCS: 76830; 76856

== ENCOUNTER 2022-05-31 08:16 | Day surgery (SDC) | payer SELFPAY, OTHER ==
--- NOTE | 2022-05-17 10:28 | EKG12_ITS ---
Test Reason : PRE OP Blood Pressure : / mmHG Vent. Rate : 069 BPM Atrial Rate : 069 BPM P-R Int : 140 ms QRS Dur : 084 ms QT Int : 402 ms P-R-T Axes : 029 057 058 degrees QTc Int : 430 ms Normal sinus rhythm Normal ECG Confirmed by JUAN PERALES, KRISTI ([id number]), publishing editor LESLY CARBAJAL ([id number]) on 05/18/2022 10:20:56 AM Referred By: FERDINAND Confirmed By:KRISTI MARTINEZ MD
[2022-05-17 11:07] LABS: Absolute Lymphocyte Count 1.59 X10^3/uL (0.83-4.51); Absolute Neutrophil Count 2.7 X10^3/uL (2.0-7.7); Basophil# 0.03 X10^3/uL; Basophil% 0.6 % (0-1); Eosinophil# 0.16 X10^3/uL; Eosinophils% 3.3 % (0-5); Hematocrit 37.6 % (37-47); Hemoglobin 12.4 g/dL (12.0-15.0); Lymphocyte # 1.59 X10^3/ul (0.83-4.51); Lymphocyte % 32.6 % (19-41); Mean Corpuscular Hgb 27.9 pg (27.0-32.0); Mean Corpuscular Volume 84.7 fL (81-99); Mean Platelet Vol. 9.5 fl (6.2-12.0); Monocyte# 0.34 X10^3/uL; NRBC Flagged by Analyzer 0 % (0-5); Neutrophil # 2.74 X10^3/uL (2.7-7.7); Neutrophil % 56.3 % (47-70); Platelet Count 324 K/mm3 (150-450); RBC Distribution Width CV 13.3 % (11.6-14.6); RBC Distribution Width SD 41.1 fl (35.1-43.9); Red Blood Count 4.44 M/mm3 (4.2-5.4); White Blood Count 4.9 K/mm3 (4.4-11.0)
[2022-05-17 11:10] LABS: International Normalized Ratio 1.1
[2022-05-17 11:11] LABS: Partial Thromboplast Time 31.2 Seconds (24.1-36.2)
[2022-05-17 11:39] LABS: AST(SGOT) 21 U/L (15-37); Alanine Aminotransfer ALT/SGPT 42 U/L (13-56); Albumin, Serum 3.9 g/dL (3.2-5.0); Alkaline Phosphatase 57 U/L (45-117); Anion Gap 4 (5-15); BUN 15 mg/dL (7-18); Calcium,Total 9.7 mg/dL (8.5-10.1); Chloride 104 mmol/L (98-107); Creatinine, Serum 0.71 mg/dL (0.55-1.02); EST Glomerular Filtration Rate 95 mL/min (>60); Est Glom Filt Rate - Afr Amer 115 mL/min (>60); Globulin 3.9 g/dL (2.2-4.2); Glucose 102 mg/dL (74-106); Potassium 3.9 mmol/L (3.5-5.1); Protein, Total 7.8 g/dL (6.4-8.2); Sodium Level 138 mmol/L (136-145)
[2022-05-18 13:05] LABS: Magnesium 2.1 mg/dL (1.6-2.6); Thyroid Stim Hormone (TSH) 0.01 uIU/mL (0.358-3.74)
--- NOTE | 2022-05-30 19:25 | HP.PCM_ITS ---
History and Physical Date of Admission: 05/31/22 MR#: [id number] Acct: [id number] Name:BERNARDA MEZA Rep #: [id number] : 1980 ? ? Provider: Dr. Sarai Jackson MD Age/Sex:? 41/F ? ? Location: [facility] Status: Signed Intake Vital Signs ? 05/17/2310:09 05/17/2310:11 Height ? 5 ft 5 in Weight: 227 lb 8 oz ? BP 125/78 H ? Intake Visit Reasons:?[facility] Optometric Assistant Required: No Is patient in pain?: No Allergies No Known Allergies Allergy (Verified 05/17/22 11:09) Patient : No : No [facility] Medical History? DVT (deep vein thrombosis) in H/O adrenal disorder History of DVT (deep vein thrombosis) Surgical History? H/O bilateral salpingectomy H/O dilation and curettage H/O eye surgery Hx laparoscopic cholecystectomy Family History? Other Blood clot in vein Hormone deficiency Social History? Smoking Status:? Never smoker alcohol intake:? never substance use type:? does not use caffeine:? Yes what type of physical activity do you participate in:? walking frequency:? other details: rebounder seatbelt use:? always do you feel safe at home:? Yes additional social history:? Andrew Francois [facility] Details: BERNARDA MCCOY is a 41 year old who presents for preop appointment for hysterectomy for heavy menses. nl EMB UTERUS:? Anteverted. The uterus measures 11 x 6.8 x 6.1 cm.? There is a 2.5 cm intramural fibroid in the posterior body. The endometrial stripe measures 8 mm in AP diameter which is within normal limits. Multiple nabothian cysts, including a debris filled cyst. RIGHT OVARY: Measures 2.2 x 2.1 x 1.4 cm. Non-enlarged, normal echogenicity. There is normal arterial inflow and venous outflow present in the right ovary. LEFT OVARY: Measures 2.9 x 2.8 x 3.7 cm. Non-enlarged, normal echogenicity. There is normal arterial inflow and venous outflow present in the left ovary. Female Reproductive History Menopausal Symptoms: No hot flashes, No night sweats, No difficulty concentrating and No change in libido History ? ? ? 5 ? Elective abortions ? Hx Para ? ? ? 4 ? Spontaneous abortions ? ? ? 1 Hx # Term Pregnancies ? Ectopic pregnancies ? Hx # Pregnancies ? Multiple births ? ? ? 1 ? # of living children ? ? ? 5 Past Pregnancies Del. Date Name GA/Weeks Outcome Route Bth Weight Infant Gen Labor Lgth Anesthesia Del Locatn Provider FOB Unknown 2001 Ashish ? live - full term ? Unknown 2004 Malcolm and Hal ? live - fu ll term ? Unknown 2015 Tiesha ? live - full term C-sec tion ? 08/14/18 Irma 38 live - full term 7 lb s 14oz Female ? spinal [facility] ? Delivery Date: 08/14/18? Last Updated by: Babs Cabrera ? ? ? GDMA, H/O DVT, RLTCS BTL ROS Const Constitutional: Denies fatigue, fever(s), headache(s), increased appetite, poor appetite, night sweats, weight gain or weight loss ENT ENT: Reports system reviewed and no additional complaints, except as documented Cardio Card: Denies chest pain Resp Resp: Denies cough or dyspnea GI GI: Reports as per HPI; Denies abdominal pain, constipation, nausea or vomiting : Reports as per HPI; Denies difficulty voiding, dysuria, hot flashes, nipple discharge, urinary frequency, urinary incontinence, urinary hesitancy, urinary urgency, vaginal discharge, vaginal dryness, vaginal odor or vaginal pruritus Musc Musc: Denies arthralgias, back pain or muscle weakness Skin Skin/Breast: Denies change in hair, breast mass, breast pain, breast skin changes or nipple discharge Neuro Neuro: Reports system reviewed and no additional complaints, except as documented Psych Psych: Reports system reviewed and no additional complaints, except as documented; Denies change in libido or difficulty concentrating Endo Endo: Denies cold intolerance, excessive sweating, heat intolerance or polydipsia Dilan/Lymph Hematologic/Lymphatic: Denies easy bleeding, Denies easy bruising and Denies lymphadenopathy Exam Const General: cooperative, healthy appearing, comfortable, no acute distress and well developed Nutritional Appearance: average body habitus Orientation: alert [facility] Head: normal to inspection and normocephalic Ears: hearing grossly normal bilaterally and external ears normal Nose: external nose normal and nares normal Face and sinus: normal facial exam Neck Neck: normal visual inspection and trachea midline Thyroid: thyroid normal Chest Chest palpation & inspection: normal inspection of the chest Resp Effort & Inspection: normal respiratory effort Auscultation: clear to auscultation bilaterally Cardio Rate: regular rate Rhythm: regular rhythm Heart Sounds: S1 normal and S2 normal GI Inspection: normal to inspection and non-distended Palpation: soft and no hepatosplenomegaly General: bladder normal to palpation External Female Exam: normal external appearance and normal appearance of the urethra Urethra: normal appearance of the urethra, normal palpation and no discharge Speculum Exam - Vagina: normal appearance of the vagina and normal vaginal discharge Speculum Exam - Cervix: normal appearance of the cervix and nontender Bimanual Exam- Vagina & Uterus: normal bimanual exam, uterine size normal, bladder normal to palpation, uterine shape normal, No tender, uterine mobility normal, consistency normal, normal palpation and non-tender Bimanual Exam- Adnexa, other: normal adnexae, adnexae mobile, no masses and normal Pelvic Support: normal Musc Other: gross motor intact no deficits, full bilateral strength Skin General: no rashes or lesions noted Neuro General: patient alert, patient awake, moves all extremities and no focal motor deficits Motor: muscle tone normal throughout Extrem General: normal to inspection and no pedal edema Psych Appearance: grossly normal Mental Status: mental status grossly normal Affect: normal affect Speech and Movement: speech and movement normal Coding Level of Care Code No Charge Diagnoses Menorrhagia with regular cycle? N92.0 Assessment and Plan Assessment and Plan (1) Menorrhagia with regular cycle: ?Status:?Acute ?Comment: discussed options plan LAVH. will need postop anticoagulation x 4 weeks Plan After discussing the patient's diagnosis and treatment plan options, patient wishes to proceed with surgical management.? I have discussed with the patient the risks, benefits, and alternatives of the procedure which include but are not limited to risks of anesthesia, bleeding, infection, possible damage to bowel, bladder, or surrounding vasculature which could lead to additional surgery to evaluate any complications.? Patient agrees to procedure and wishes to proceed.? ACOG/uptodate references given for additional information regarding procedure.?
[2022-05-31] VITALS (15 sets, daily range): BP systolic 109–145; BP diastolic 59–85; PULSE 78–94; RESP 16–20; TEMP 36.3–36.9; O2SAT 90–100; BMI 37.4
--- NOTE | 2022-05-31 | HYST_PTH ---
PATIENT: BERNARDA MCCOY LOC: [facility] U#:[id number] AGE/SX: 41/F ROOM: RE05/31/[address]: Dr. Sarai Jackson MD : 1980 BED: DIS: 05/31/2022 SPEC #: [id number] RECD: 05/31/22 13:10 STATUS: TERESA VICTORINO #: [id number] KASHMIR: 05/31/22 00:[address]: Sarai Jackson DEPT: SURGICAL PATHOLOGY RECD BY: Keenan Sanderson ENTERED: 05/31/22 13:10 SP TYPE: HYSTERECT OTHR DR: Dr. Sandeep Nuno MD Tissues: Uterus, NOS Procedures: Surgery Specimen Level V HEADER OPERATION: ERAS, hysterectomy, LAVH PRE-OP DIAGNOSIS: Menorrhagia with regular cycle TISSUE SUBMITTED: Uterus, cervix MICROSCOPIC DIAGNOSIS Uterus and cervix, vaginal hysterectomy: Cervix ? minimal chronic inflammation. Endometrium ? secretory endometrium. Myometrium ? intramural leiomyomas (largest measuring 2.5 cm in greatest dimension). - Focal superficial adenomyosis. QUINCY:nirav 06/01/2022 MICROSCOPIC DESCRIPTION Slides are reviewed. GROSS DESCRIPTION Received in fixative is one container labeled with the patient's name and designated uterus, cervix. The specimen consists of a hysterectomy specimen consisting of uterus with cervix measuring 11.0 x 8.0 x 5.0 cm and weighing 158 gm. The serosal surface is ragged. The ectocervical mucosa is unremarkable. The external os is oval and patulous in contour. The endocervical canal measures 3.5 cm in length and the endocervical mucosa is rose, glistening and unremarkable. The triangular endometrial cavity measures 5.0 cm in length and up to 4.0 cm in width. The endometrium is rose, glistening without any mass lesion and measures 0.2 cm in thickness. Sections of the uterine wall reveal multiple intramural nodular masses. The largest mass measures 2.5 cm in greatest dimension. Sections of these masses reveal rose whorled cut surfaces without areas of hemorrhage, necrosis or cystic degeneration. The uterine wall measures up to 3.0 cm in thickness. Cio sections are submitted in eight cassettes as follows: 1 - anterior cervix, 2 - posterior cervix, 3 & 4 - anterior uterine wall, 5 & 6 - posterior uterine wall, 7 - largest nodular mass, 8 - smaller nodular masses. / QUINCY:nirav 05/31/2022 TC:1 [facility]: [id number]
[2022-05-31] MEDS: Lactated Ringers 1,000 ML 40 ML IV ×2 (08:35→14:25)
[2022-05-31] MEDS: Magnesium 1 GM over 15 mins IV (08:45)
[2022-05-31] MEDS: Enoxaparin 40 MG/0.4 ML Syringe SC (09:00)
[2022-05-31] MEDS: dexAMETHasone 10 MG/ML Vial 8 MG IV (09:02)
[2022-05-31] MEDS: Scopolamine 1mg/72hr Patch 1 PATCH TD (09:03)
[2022-05-31] MEDS: Acetaminophen 500 MG Tablet 1000 MG PO ×2 (09:03→15:59)
[2022-05-31] MEDS: Celecoxib 200 MG Capsule 400 MG PO (09:05)
[2022-05-31] MEDS: Phenazopyridine 95 MG Tablet 190 MG PO (09:06)
[2022-05-31] MEDS: Gabapentin 600 MG Tablet PO (09:06)
[2022-05-31] MEDS: Cefazolin 2 GM in 0.9% Normal Saline 100 ML IV (10:24)
--- NOTE | 2022-05-31 10:37 | OP.PCM_ITS ---
Problems Associated Problem List Diagnoses (1) Menorrhagia with regular cycle: (2) S/P laparoscopic assisted vaginal hysterectomy (LAVH): Report of Operation Date of Procedure: 05/31/22 Pre-Operative Diagnosis: aub Post-Operative Diagnosis: same Surgery/Procedure Performed:: LAVH Description of Surgical Findings:: enlarged uterus Surgeon: Sarai Jackson buffing machine operator semiautomatic: Vladimir Vicente Type of Anesthesia: General Specimen's removed: uterus Drains: calderon Fluids Replaced: crystalloid Description of Procedure: Patient received preoperative antibiotics and SCDs were on preoperatively. Patient was taken back to the operating room and placed in the dorsal lithotomy position. General anesthesia was induced and patient was prepped and draped in normal sterile fashion. Uterine manipulator was placed inside the uterus and Calderon catheter placed in the bladder. The umbilicus was grasped with towel clamps and an intraumbilical incision was made after injecting with quarter percent Marcaine and a Veress needle entered into the abdomen confirmed to be intra-abdominal with a low opening pressure. Abdomen was insufflated with CO2 gas and the Veress needle removed and the 5 mm trocar was placed under direct visualization without complication. Right and left lower quadrants were transilluminated and injected with quarter percent Marcaine and 5 mm ports placed under direct visualization. Pelvis was well visualized see operative findings for additional information. The bilateral utero ovarian ligaments were transected and then the broad ligament was opened up by transecting the round ligament bilaterally and skeletonizing the uterine vessels bilaterally and creating a bladder flap using the LigaSure device. The uterine arteries were transected bilaterally with good visualization of the bladder and the ureters were seen to be inferior lateral to the operative area. Attention was then paid to the vaginal portion of the procedure and the cervix was grasped with Rosalba clamps and circumferentially injected with dilute vasopressin. A circumferential incision was made and the vaginal mucosa was mobilized off posteriorly and the cul-de-sac entered into sharply and a longneck speculum placed. The anterior cul-de-sac was then identified and entered into sharply. The uterosacral ligaments were clamped cut and suture ligated with 0 Monocryl bilaterally followed by the cardinal ligaments which were clamped cut and suture ligated bilaterally with 0 Monocryl. The uterus serially descended and was removed without difficulty. Pelvic sidewall pedicles were checked and noted to have excellent hemostasis. The vaginal mucosa was reapproximated incorporating the posterior peritoneum. This was reapproximated using 0 Vicryl [id number] sutures. Excellent hemostasis noted. Attention was then paid to the abdominal portion of the procedure again. The pelvis and cul-de-sac were well visualized and there was some bleeding on the left side wall which was treated with the ligasure device and some raw areas were seen on the peritoneum and therefore Lisa was applied. Pressure was taken down and the areas visualized and noted of excellent hemostasis. All ports were removed under direct visualization without complication and the abdomen was desufflated of air. The instruments were removed from the abdomen and the vaginal sweep was negative. Port sites on the abdomen were closed with 4-0 Monocryl interrupted sutures and Steri's and windows were applied. She was awoken and taken recovery in stable condition. Grafts/Implants Used: none Complications none Admit VTE Documentation VTE Present on Admission: No VTE Mechan Device Prophylaxis: SCD's VTE Pharm Prophylaxis ordered?: Yes Procedures Urinary/Genital 52xxx-59xxx: 70464 LAVH <250gr Uterus
--- NOTE | 2022-05-31 10:40 | DCINST_ITS ---
Discharge Instructions Diet Discharge Diet: No restrictions Activity May resume sexual activity in: 6 weeks Weight Bearing Status: Full weight bearing Dressing / Incision Call your doctor if your incision/area has: Continuous Slow Oozing, Sudden Increased Bleeding, Increased Pain/ Swelling, Increased Redness and Foul Smelling Discharge Call your doctor if you observe: Fever of 101 or Higher, Using more than 1 pad per hour, Shortness of breath, Chest pain and Uncontrolled pain Suture Line Care: Avoid Pulling/Pushing and Avoid Pinching/Bending Remove Dressing in: 1 week (if present) Cleanse incision/area with: Soap & Water and Keep Dressing Clean & Dry Follow Up Care Please Follow Up With: Sarai Jackson MD When: Call to make an appointment with your doctor for a postop visit in 2 and 6 weeks. Test Results: Test results from this visit will be discussed in further detail at your follow- up appointment, if applicable. Discharge Plan Admission Attending Provider: Sarai Jackson Primary Care Provider: Sandeep Nuno Discharge Orders/Prescriptions Prescriptions: New oxycodone-acetaminophen [Endocet] 5-325 mg tablet 1 tab PO Q4H PRN (Reason: pain) 7 Days Qty: 20 0RF enoxaparin [Lovenox] 40 mg/0.4 mL syringe 40 mg SQ DAILY 30 Days Qty: 20 1RF oxycodone-acetaminophen [Percocet] 5-325 mg tablet 1 tab PO Q6H PRN (Reason: pain) 7 Days Qty: 20 0RF enoxaparin [Lovenox] 40 mg/0.4 mL syringe 40 mg SQ DAILY 30 Days Qty: 20 1RF No Action digestive enzymes Capsule 1 cap PO DAILY Rx Instructions: administer with food; swallow whole; do not crush/chew/dissolve/break/cut vitamin B complex [B Complex-Vitamin B12] Tablet 1 tab PO DAILY physica energetics (adrernal LF) 1 cap PO DAILY Curalin 1 - 2 tab PO/SL TID levothyroxine 112 mcg tablet 112 mcg PO .Mon-Sat Qty: 100 3RF Referrals / Follow Up: Sandeep Nuno MD [Primary Care Provider] - Disposition Disposition (needs filled in before D/C Order can be placed): Home, Self Care
[2022-05-31] MEDS: Bupivacaine 0.25% 30 ML Vial (10:49)
[2022-05-31] MEDS: Vasopressin 20 UNITS/ML Vial (11:39)
[2022-05-31] MEDS: Sugammadex Sodium 200 MG/2 ML VIAL IV (12:55)
[2022-05-31] MEDS: Ondansetron 4 MG/2 ML Vial IV (12:56)
[2022-05-31] MEDS: Ketorolac 30 MG/ML Syringe IV (15:07)
[2022-05-31 16:17] LABS: Hemoglobin 12.4 g/dL (12.0-15.0); Mean Corp Hgb Conc 33.5 g/dL (32-36); Mean Corpuscular Hgb 27.9 pg (27.0-32.0); Mean Corpuscular Volume 83.3 fL (81-99); Mean Platelet Vol. 9.4 fl (6.2-12.0); Platelet Count 298 K/mm3 (150-450); RBC Distribution Width CV 13.5 % (11.6-14.6); RBC Distribution Width SD 40.9 fl (35.1-43.9); Red Blood Count 4.44 M/mm3 (4.2-5.4); White Blood Count 9.8 K/mm3 (4.4-11.0)
== END 2022-05-31 17:53 | disposition home or self-care (01) ==
LOC: SDC 08:17 → AC 08:17
PROVIDERS: Anesthesiology; PCP Family Medicine; Referring Provider Obstetrics & Gynecology; Visit Provider Obstetrics & Gynecology
PROC: 0UT9FZZ Resection of Uterus, Via Natural or Artificial Opening With Percutaneous Endoscopic Assistance (ICD-10-PCS; CPT 58550; principal; 2022-05-31 10:10)
DX: D25.1 Intramural leiomyoma of uterus (principal); N80.03 Adenomyosis of the uterus; N92.0 Excessive and frequent menstruation with regular cycle; E03.9 Hypothyroidism, unspecified; E07.9 Disorder of thyroid, unspecified; Z86.718 Personal history of other venous thrombosis and embolism; Z79.899 Other long term (current) drug therapy
CPT/HCPCS: 58550; 00840; 36415; 80053; 83735; 84443; 85025; 85027; 85610; 85730; 86850; 86900; 86901; 88307; 93005; J7120; J2405; J3475

== ENCOUNTER → 2022-06-21 | Outpatient (CLI) | payer OTHER, SELFPAY ==
[2022-06-21 15:40] LABS: Bacteria 0 SEEN /hpf (None Seen); Mucous, Urine 0 SEEN /hpf (<or=2+); Red Blood Cells-Urine 0 SEEN /hpf (0-5); White Blood Cells 0 SEEN /hpf (0-5)
[2022-06-21 15:49] LABS: Glucose, Dipstick Normal (Normal); Ketone-Dipstick Negative (Negative); Leukocyte Esterase-Dipstick 25 /ul (Negative); Nitrite-Dipstick Negative (Negative); Occult Blood-Urine Negative /ul (Negative); Protein-Dipstick Negative (Negative); Urine Bilirubin Dipstick Negative (Negative); Urine Urobilinogen Normal (Normal)
[2022-06-21 15:59] LABS: Color, Urine Yellow (Yellow); Squamous Epithelial Cells - UA 0-5 SEEN /hpf (5-10); Urine Clarity Clear (Clear)
== END | disposition home or self-care (01) ==
LOC: LABSPEC 14:47
PROVIDERS: PCP Family Medicine; Referring Provider Registered Nurse; Visit Provider Registered Nurse
DX: N89.8 Other specified noninflammatory disorders of vagina (principal)
CPT/HCPCS: 81001; 87086

== ENCOUNTER → 2022-07-14 | Outpatient (CLI) | payer OTHER, SELFPAY ==
[2022-07-14 12:00] LABS: T4 Free Direct 0.84 ng/dL (0.76-1.46)
== END | disposition home or self-care (01) ==
LOC: LAB 10:34
PROVIDERS: PCP Family Medicine; Referring Provider Internal Medicine Endocrinology, Diabetes & Metabolism; Visit Provider Internal Medicine Endocrinology, Diabetes & Metabolism
DX: E03.9 Hypothyroidism, unspecified (principal)
CPT/HCPCS: 36415; 84439; 84443

== ENCOUNTER → 2022-08-02 | Outpatient (CLI) | payer SELFPAY, OTHER ==
--- NOTE | 2022-08-02 13:57 | VDLE_ITS ---
Reason For Study: Left Leg Swelling RIGHT LEFT CFV is compressible, spontaneous, phasic, GSV is normal. competent and demonstrates normal CFV is compressible, spontaneous, phasic, augmentation. competent, and demonstrates normal Procedure augmentation. Exam performed in department. FV is compressible, spontaneous, phasic, The exam was diagnostic. competent and demonstrates normal A preliminary report was called and/or faxed augmentation. to Dr. Jackson. POP V is compressible, phasic, and INCOMPETENT for greater than 1.0 second. T/P Trunk is compressible. PTV is compressible. LT PerV is compressible. Multiple varicosities noted throughout left calf. Vessels appear to be compressible. VL/Venous Duplex US, Unilateral Interpretation Summary There is no evidence of left lower extremity deep vein thrombosis. Left great s aphenous vein appears patent and compressible segmentally. Incompetent left popliteal vein Multiple compressible varicosities noted throughout the left calf Normal flow patterns right common femoral vein Ordering Physician: Sarai Jackson Referring Physician: Sandeep Guzman Performed By: Nehemias Mccurdy RVT
== END | disposition home or self-care (01) ==
PROVIDERS: PCP Family Medicine; Referring Provider Obstetrics & Gynecology; Visit Provider Obstetrics & Gynecology
DX: R60.0 Localized edema (principal)
CPT/HCPCS: 93971

== ENCOUNTER → 2023-09-18 | Outpatient (CLI) | payer SELFPAY, OTHER ==
--- NOTE | 2023-09-18 13:34 | BI_ITS ---
MAMMOGRAPHY - BILATERAL SCREENING 3-D TOMOSYNTHESIS REASON FOR EXAM: Female, 42 years old. screening mammogram PERTINENT HISTORY: No significant family history. TECHNIQUE: 2-D mammograms and 3-D Tomosynthesis of the breast (s) were performed. CAD was performed. COMPARISON: None. FINDINGS: The breast composition is composed of scattered fibroglandular density. Scattered benign calcifications are seen. No dense spiculated masses or suspicious microcalcifications are identified. No architectural distortion is identified. There is no skin thickening or retraction. There has been no significant change since the prior study. BI/SCRN MAMM (CAD)W/ROBIN BILAT IMPRESSION: No mammographic signs of malignancy. Routine yearly mammograms recommended. ASSESSMENT CATEGORY: BIRADS Category 1: Negative. A letter regarding these results will be sent to the patient by the facility within 30 days. FOLLOW UP RECOMMENDATION: Yearly follow up mammogram recommended. (A) Approximately 10% of breast cancers are not detected by mammography. A normal mammogram should not delay biopsy of a clinically suspicious abnormality. Electronically Signed: Ramon Alfaro MD at 16:37 EDT ,
[2023-09-18 14:43] LABS: Thyroid Stim Hormone (TSH) 1.99 uIU/mL (0.358-3.74)
== END | disposition home or self-care (01) ==
PROVIDERS: PCP Family Medicine; Referring Provider Obstetrics & Gynecology; Visit Provider Obstetrics & Gynecology
DX: Z12.31 Encounter for screening mammogram for malignant neoplasm of breast (principal); E03.9 Hypothyroidism, unspecified
CPT/HCPCS: 36415; 77063; 77067; 84439; 84443

== ENCOUNTER → 2023-10-20 | Outpatient (CLI) | payer OTHER, SELFPAY ==
[2023-10-20 15:05] LABS: Absolute Lymphocyte Count 1.87 X10^3/uL (0.83-4.51); Absolute Neutrophil Count 3.7 X10^3/uL (2.0-7.7); Basophil# 0.05 X10^3/uL; Basophil% 0.8 % (0-1); Eosinophil# 0.18 X10^3/uL; Eosinophils% 2.9 % (0-5); Hematocrit 36.4 % (37-47); Hemoglobin 12.4 g/dL (12.0-15.0); Lymphocyte # 1.87 X10^3/ul (0.83-4.51); Lymphocyte % 30.3 % (19-41); Mean Corp Hgb Conc 34.1 g/dL (32-36); Mean Corpuscular Hgb 29.6 pg (27.0-32.0); Mean Corpuscular Volume 86.9 fL (81-99); Mean Platelet Vol. 9.5 fl (6.2-12.0); Monocyte# 0.38 X10^3/uL; Monocyte% 6.2 % (0-10); NRBC Flagged by Analyzer 0 % (0-5); Neutrophil # 3.68 X10^3/uL (2.7-7.7); Neutrophil % 59.6 % (47-70); Platelet Count 288 K/mm3 (150-450); RBC Distribution Width CV 12.9 % (11.6-14.6); RBC Distribution Width SD 40.6 fl (35.1-43.9); Red Blood Count 4.19 M/mm3 (4.2-5.4); White Blood Count 6.2 K/mm3 (4.4-11.0)
[2023-10-20 15:43] LABS: Hemoglobin A1c 5.4 % (3.8-5.6)
[2023-10-20 15:44] LABS: Vitamin B12 > 2000 pg/mL (211-911); Vitamin D,25 Hydroxy 28.4 ng/mL
[2023-10-20 15:47] LABS: ALB/GLOB Ratio 1.1 RATIO (0.9-2.4); AST(SGOT) 17 U/L (15-37); Alanine Aminotransfer ALT/SGPT 34 U/L (13-56); Alkaline Phosphatase 54 U/L (45-117); Anion Gap 7 (5-15); BUN 20 mg/dL (7-18); BUN/Creat Ratio 21.2 RATIO (10-20); Calcium,Total 8.9 mg/dL (8.5-10.1); Chloride 107 mmol/L (98-107); Cholesterol 195 mg/dL (200); Creatinine, Serum 0.94 mg/dL (0.55-1.02); EST Glomerular Filtration Rate 68 mL/min (>60); Est Glom Filt Rate - Afr Amer 83 mL/min (>60); Globulin 3.5 g/dL (2.2-4.2); Glucose 95 mg/dL (74-106); High Density Lipoprotein 55 mg/dL; Potassium 3.8 mmol/L (3.5-5.1); Protein, Total 7.5 g/dL (6.4-8.2); Sodium Level 140 mmol/L (136-145); T4 Free Direct 0.84 ng/dL (0.76-1.46); Triglycerides 305 mg/dL; Very Low Density Lipoprotein 61 mg/dL (5-40)
== END | disposition home or self-care (01) ==
LOC: LAB 14:11
PROVIDERS: PCP Family Medicine; Referring Provider Nurse Practitioner Family; Visit Provider Nurse Practitioner Family
DX: E78.5 Hyperlipidemia, unspecified (principal); E66.8 Other obesity; E03.9 Hypothyroidism, unspecified; Z68.34 Body mass index [BMI] 34.0-34.9, adult
CPT/HCPCS: 36415; 80053; 80061; 82306; 82607; 83036; 84439; 84443; 85025

== ENCOUNTER → 2024-07-12 | Outpatient (CLI) | payer OTHER, SELFPAY ==
[2024-07-12 09:41] LABS: Absolute Lymphocyte Count 1.86 X10^3/uL (0.83-4.51); Absolute Neutrophil Count 2.8 X10^3/uL (2.0-7.7); Basophil# 0.04 X10^3/uL; Basophil% 0.8 % (0-1); Eosinophil# 0.12 X10^3/uL; Eosinophils% 2.3 % (0-5); Hematocrit 37.8 % (37-47); Hemoglobin 13.2 g/dL (12.0-15.0); Lymphocyte # 1.86 X10^3/ul (0.83-4.51); Lymphocyte % 35.9 % (19-41); Mean Corp Hgb Conc 34.9 g/dL (32-36); Mean Corpuscular Hgb 29.7 pg (27.0-32.0); Mean Corpuscular Volume 85.1 fL (81-99); Mean Platelet Vol. 9.3 fl (6.2-12.0); Monocyte# 0.33 X10^3/uL; Monocyte% 6.4 % (0-10); NRBC Flagged by Analyzer 0 % (0-5); Neutrophil # 2.82 X10^3/uL (2.7-7.7); Neutrophil % 54.4 % (47-70); Platelet Count 293 K/mm3 (150-450); RBC Distribution Width CV 12.8 % (11.6-14.6); RBC Distribution Width SD 39.6 fl (35.1-43.9); Red Blood Count 4.44 M/mm3 (4.2-5.4); White Blood Count 5.2 K/mm3 (4.4-11.0)
[2024-07-12 10:48] LABS: ALB/GLOB Ratio 1.6 RATIO (0.9-2.4); AST(SGOT) 21 U/L (<=31); Alanine Aminotransfer ALT/SGPT 20 U/L (<=34); Albumin, Serum 4.7 g/dL (3.5-5.0); Alkaline Phosphatase 47 U/L (35-104); Anion Gap 12 (5-15); BUN 11 mg/dL (4-19); Calcium,Total 9.8 mg/dL (7.6-11.0); Carbon Dioxide 23.8 mmol/L (21.0-32.0); Chloride 102 mmol/L (98-108); Cholesterol 172 mg/dL (<=200); Creatinine, Serum 0.75 mg/dL (0.70-1.20); EST Glomerular Filtration Rate 101 (>60); Globulin 2.9 g/dL (2.2-4.2); Glucose 87 mg/dL (70-99); High Density Lipoprotein 54 mg/dL; Low Density Lipoprotein Calc. 98 mg/dL; Potassium 4.1 mmol/L (3.3-5.1); Protein, Total 7.6 g/dL (5.9-8.4); Sodium Level 137 mmol/L (133-145); Total Bilirubin 0.47 mg/dL (0.00-1.30); Triglycerides 100 mg/dL; Very Low Density Lipoprotein 20 mg/dL (5-40); Vitamin B12 730 pg/mL (180-914); Vitamin D,25 Hydroxy 38.4 ng/mL (30-100); cholesterol:hdl ratio screen 3.19
== END | disposition home or self-care (01) ==
LOC: LAB 09:15
PROVIDERS: PCP Family Medicine; Referring Provider Nurse Practitioner Family; Visit Provider Nurse Practitioner Family
DX: Z13.21 Encounter for screening for nutritional disorder (principal); Z13.29 Encounter for screening for other suspected endocrine disorder; E03.9 Hypothyroidism, unspecified; R53.83 Other fatigue
CPT/HCPCS: 36415; 80053; 80061; 82306; 82607; 84439; 84443; 85025

== ENCOUNTER → 2024-11-20 | Outpatient (CLI) | payer OTHER, SELFPAY | END | disposition home or self-care (01) | LOC: LAB 13:10 | PROVIDERS: PCP Family Medicine; Referring Provider Nurse Practitioner Family; Visit Provider Nurse Practitioner Family | DX: E03.9 Hypothyroidism, unspecified (principal) | CPT/HCPCS: 36415; 84439; 84443 ==